=== PATIENT | male | born 1950 | race Caucasian/White ===

== ENCOUNTER → 2018-08-04 | Outpatient (CLI) | payer OTHER, BC ==
--- NOTE | 2018-08-05 17:27 | SLE ---
[facility] [address] [place] [place] [address] POLYSOMNOGRAPHY STUDY Name: BERNABE OJEDA Room #: REG [facility].#: [id number] Admission: 08/04/18 ������������������ Attend Phys: Rolando Gill MD Discharge: ������������������ Date of : 54 Report #: [id number] THIS REPORT FOR: //name// CC: Christopher Gill MD DATE OF SERVICE: 08/04/2018 ATTENDING PHYSICIAN: Rolando Gill MD. The patient is a 67-year-old who weighs 226 pounds with a BMI of 31.5. The patient underwent home sleep study performed by [facility]. Total recording time was 479 minutes. During the night study, the patient had 370 obstructive apneas, no central apneas and 8 mixed apneas and 5 hypopneas. The patient's apnea hypopnea index was 65 per hour, supine index 65 per hour as well. Nocturnal oximetry study revealed an average oxygen saturation of 90% with the lowest of 68%. 188 minutes were spent in oxygen saturation less than 90% and another 68 minutes with saturation less than 85% and another 18 minutes with saturation less than 80%. Mean heart rate was 71 beats per minute with a maximum 102 beats per minute. IMPRESSION: 1. Severe sleep apnea-hypopnea syndrome at an apnea hypopnea index of 65 per hour. 2. Severe nocturnal hypoxia secondary to obstructive sleep apnea. RECOMMENDATIONS: 1. The patient would benefit from in-lab CPAP titration study. 2. Once optimal CPAP pressure is achieved, then follow up in 4-6 weeks to assess compliance with CPAP and to document clinical improvement. 3. Weight loss is strongly advised. 4. 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 5. Cautioned regarding driving until symptoms of sleep apnea resolved with the use of CPAP. ��������������������������������������������� <ELECTRONICALLY SIGNED> ���������������������������������������� By: Presley Valle MD ��������������������������������������������� 08/05/18 1727 [id number] Presley Valle MD /nt
== END ==
LOC: SLEEPLAB 11:18
DX: G47.33 Obstructive sleep apnea (adult) (pediatric) (principal); G47.34 Idiopathic sleep related nonobstructive alveolar hypoventilation

== ENCOUNTER → 2018-08-11 | Outpatient (CLI) | payer OTHER, BC ==
--- NOTE | 2018-08-18 00:02 | SLE ---
[facility] [place] [place] [address] POLYSOMNOGRAPHY STUDY Name: BERNABE OJEDA Room #: REG [facility].#: [id number] Admission: 08/11/18 ������������������ Attend Phys: Presley Valle MD Discharge: ������������������ Date of : 54 Report #: [id number] THIS REPORT FOR: //name// CC: Presley Gill MD DATE OF SERVICE: 08/11/2018 ATTENDING PHYSICIAN: Rolando Gill MD INDICATIONS: The patient is 67 years old who weighs 220 pounds with a BMI of 71.5. The patient had a home sleep study and was found to have severe REYMUNDO at an AHI of 65 per hour. The patient also had severe nocturnal hypoxia. The patient returned for in-lab CPAP titration study. INTERPRETATION: During the night study, the patient spent 502 minutes in bed and slept for 437 minutes with a sleep efficiency of 87%. Sleep latency was 8.8 minutes with a REM latency of 45 minutes, which was short. Overall, sleep architecture showed normal stage 1 and stage 2 sleep, increased N3 sleep and increased REM sleep. EKG monitoring revealed an average heart rate of 64 beats per minute with a maximum 81 beats per minute. Occasional PVCs observed. No sustained arrhythmias observed. PLMS were seen at an index of 46 per hour and 3 per hour caused EEG arousals. The patient was started on CPAP at a pressure of 6 cm of water and titrated up to 11 cm water. At the final pressure, the patient slept for 341 minutes. The patient had 95 minutes of REM sleep. The patient also had supine sleep as well. The patient's AHI was reduced to 2.1 per hour and oxygen saturation remained above 88%. IMPRESSION: 1. Severe sleep apnea diagnosed by home sleep study. 2. Moderate to severe periodic limb movements during sleep. RECOMMENDATIONS: 1. CPAP at 11 cm water completely eliminated the patient's sleep apnea and should be used on a nightly basis. 2. Follow up in 4-6 weeks to assess compliance and to document clinical improvement. 3. Weight loss is strongly advised. 4. 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 [facility] [address] [place] [address] POLYSOMNOGRAPHY STUDY Name: BERNABE OJEDA Room #: REG [facility].#: [id number] Admission: 08/11/18 ������������������ Attend Phys: Presley Valle MD Discharge: ������������������ Date of : 54 Report #: [id number] 5. Cautioned regarding driving until symptoms of sleep apnea resolve with the use of CPAP. 6. The patient should also be further evaluated for symptoms of restless legs during the day and if present, it can be treated with dopaminergic agonist agents. ��������������������������������������������� <ELECTRONICALLY SIGNED> ���������������������������������������� By: Presley Valle MD ��������������������������������������������� 08/18/18 0002 1734 23 Presley Valle MD /nt
== END ==
LOC: SLEEPLAB 15:04
DX: G47.30 Sleep apnea, unspecified (principal); G47.61 Periodic limb movement disorder